=== PATIENT | male | born 1965 | race Caucasian/White ===

== ENCOUNTER 2016-11-15 15:44 | Inpatient (IN) ==
[2016-11-15 17:15] LABS: FREE T4 1.01 ng/dL (0.93-1.70)
--- NOTE | 2016-11-15 17:19 | EKG Report ---
Test Performed on : 11/15/2016 4:20:56 PM Test Reason : Psych Blood Pressure : / mmHG Vent. Rate : 086 BPM Atrial Rate : 086 BPM P-R Int : 204 ms QRS Dur : 106 ms QT Int : 384 ms P-R-T Axes : 042 044 054 degrees QTc Int : 459 ms Sinus rhythm. with occasional premature ventricular complexes. Otherwise normal ECG No previous ECGs available Unconfirmed Result
[2016-11-15 17:21] LABS: BASO% 0.2 % (0.0-0.8); EOS# 0.01 X1000 (0.0-0.7); EOS% 0.2 % (0.0-10.0); HEMOGLOBIN 11.7 g/dL (14.0-18.0); IMM GRAN# 0.01 X1000 (0.0-0.04); IMM GRAN% 0.2 % (0.0-0.5); LYMPH# 0.47 X1000 (1.2-3.4); LYMPH% 10.3 % (20.5-51.1); MANUAL DIFF NEEDED? NO; MCH 34.7 PG (27-31); MCHC 36.6 g/dL (33-37); MONO# 0.58 X1000 (0.11-0.59); MONO% 12.7 % (1.7-9.3); NEUT% 76.4 % (42.2-75.2); PLT 143 X1000 (130-400); RBC 3.37 XMIL (4.7-6.1)
[2016-11-15 17:24] LABS: AGAP 13; ALBUMIN 4.6 g/dL (3.5-5.0); ALKALINE PHOSPHATASE 75 U/L (32-122); BUN 19 mg/dL (8-22); CALCIUM 9.4 mg/dL (8.8-10.2); CHLORIDE 81 mmol/L (98-107); COSMO 244; GOT 48 U/L (10-34); GPT 38 U/L (10-44); POTASSIUM 3.8 mmol/L (3.5-5.1); TCO2 25 mmol/L (25-35); TOTAL PROTEIN 7.1 g/dL (6.3-8.3)
[2016-11-15 17:25] LABS: SODIUM 119 mmol/L (136-145)
[2016-11-15] MEDS ORDERED: NS 1,000 ML IV ONE (17:27)
--- NOTE | 2016-11-15 17:38 | PROVIDER DOCUMENTATION ---
This chart was entered by Chau Braun Scribe, acting as scribe for Etta Don CRNP. HPI-Psychological Disorder - General Chief Complaint: Req. Detox Stated Complaint: PSYCH EVAL Time Seen by Provider: 11/15/16 15:45 Source: patient, family Allergies/Adverse Reactions: Patient Allergies Allergy/AdvReac Type Severity Reaction Status Date / Time No Known Allergies Allergy Verified 11/15/16 15:55 Home Medications: Home Medication List Medication Instructions Recorded Confirmed Last Taken Type Isotretinoin [Claravis] 40 mg PO DAILY 11/15/16 11/15/16 Unknown History Nebivolol HCl [Bystolic] 10 mg PO DAILY 11/15/16 11/15/16 Unknown History - History of Present Illness-Psych Nature of Presenting Problem: patient is a 51 y/o M that presents to the [facility] via 's office for detox. patient has been drinking for 25 years and stopped 3 days ago. he has had ams and unsteady gait since. Daughter reports pt having depression and Si thoughts. Patient denies chest pain, fever/chills, or n/v/d Onset/Duration: reports: gradual, 3 days ago Timing: reports: still present, getting worse Severity: reports: moderate Situational problems related to:: reports: other (stopped drinking) Psychiatric Complaints: reports: depressed, suicidal ideation Substance Use: reports: alcohol Previous psych related hospitalizations?: No Patient arrived by:: private car Similar Symptoms Previously?: No Recently seen or treated by another doctor?: Yes Review of Systems - Adult - REVIEW OF SYSTEMS - ADULT Constitutional: denies: chills, fever Eyes: denies: decreased vision, blurred vision, double vision Ears, Nose, Mouth & Throat: denies: ear discharge, ear pain, epistaxis, mouth/ dental pain, mouth swelling Cardiovascular: denies: chest pain, palpitations, syncope Respiratory: denies: pleurisy, shortness of breath, wheezing Gastrointestinal: denies: abdominal pain, diarrhea, nausea, vomiting Genitourinary: denies: dysuria, frequency, hematuria, urinary retention Musculoskeletal: denies: back pain, joint pain, neck pain Integumentary: reports: no symptoms reported Neurological: reports: loss of balance, other (ams). denies: dizziness/vertigo , headache/migraines, seizure, syncope, tremors Psychiatric: reports: alcohol/drug dependence, depression, suicidal thoughts Endocrine: reports: no symptoms reported Hematologic/Lymphatic: reports: no symptoms reported Allergic/Immunologic: reports: no symptoms reported All Other Systems: Reviewed and Negative Past History - Adult - PAST MEDICAL HISTORY-ADULT Review of Records: reports: Old Records Reviewed, Nursing Assessment Review, Medications Reviewed Cardiovascular: reports: hyperlipidemia Neurological: reports: other (encephalopathy) Psychiatric: reports: anxiety, depression - PRIOR SURGERIES/PROCEDURES Surgical/Procedure History: reports: hernia repair - IMMUNIZATION STATUS Childhood Immunizations: See Nurse Assessment Flu Vaccine: See Nurse Assessment - FAMILY HISTORY Family History: reviewed, not pertinent - SOCIAL HISTORY Smoking: quit greater than 1 year, cigarettes Alcohol Use Frequency: every day Living Situation: family Physical Exam-Psych Focus - Physical Exam-Psych Initial Vital Signs Reviewed: Yes Appearance: appropriate appearance, appropriate insight, no memory impairment, alert Neurological: alert, calm, oriented x 3, other (unsteady gait) Behavior/Eye Contact/Speech: cooperative, good eye contact Thoughts/Hallucinations: normal thought pattern, no apparent hallucination HENMT: normocephalic/atraumatic, moist mucous membranes, normal ENT inspection Neck: full range of motion, normal inspection Respiratory: lungs clear, normal breath sounds, no respiratory distress, no accessory muscle use Cardiovascular: regular rate, rhythm, no edema Abdominal Exam: normal bowel sounds, non tender, soft Back Exam: no CVA tenderness, no vertebral tenderness Extremity: no calf tenderness, normal capillary refill, pelvis stable Integumentary: normal color, warm/dry Progress - PLAN OF CARE/RESULTS Progress/Plan/Lab Results: Vital Signs - 8 hr 11/15/16 15:49 Temperature 97.6 F Pulse Rate 88 Respiratory Rate 20 Blood Pressure 129/081 O2 Sat by Pulse Oximetry 99 Laboratory Results - last 24 hr 11/15/16 11/15/16 11/15/16 16:23 16:23 16:23 WBC RBC Hgb Hct MCV MCH MCHC RDW Std Deviation Plt Count MPV Immature Gran % (Auto) Neut % (Auto) Lymph % (Auto) Bracken % (Auto) Eos % (Auto) Baso % (Auto) Immature Gran # (Auto) Neut # (Auto) Lymph # (Auto) Bracken # (Auto) Eos # (Auto) Baso # (Auto) Sodium 119 L* Potassium 3.8 Chloride 81 L Carbon Dioxide 25 Anion Gap 13 BUN 19 Creatinine 0.6 L Estimated GFR/1.73 m2 > 60 BUN/Creatinine Ratio 32 Glucose 129 H Calculated Osmolality 244 Calcium 9.4 Total Bilirubin 1.20 H AST 48 H ALT 38 Alkaline Phosphatase 75 Ammonia Total Protein 7.1 Albumin 4.6 Globulin 3.0 Albumin/Globulin Ratio 2.0 TSH 1.48 Free T4 1.01 Plasma/Serum Ethyl Alc 11/15/16 11/15/16 16:23 16:23 WBC 4.58 L RBC 3.37 L Hgb 11.7 L Hct 32.0 L MCV 95.0 MCH 34.7 H MCHC 36.6 RDW Std Deviation 11.0 L Plt Count 143 MPV 11.0 H Immature Gran % (Auto) 0.2 Neut % (Auto) 76.4 H Lymph % (Auto) 10.3 L Bracken % (Auto) 12.7 H Eos % (Auto) 0.2 Baso % (Auto) 0.2 Immature Gran # (Auto) 0.01 Neut # (Auto) 3.50 Lymph # (Auto) 0.47 L Bracken # (Auto) 0.58 Eos # (Auto) 0.01 Baso # (Auto) 0.01 Sodium Potassium Chloride Carbon Dioxide Anion Gap BUN Creatinine Estimated GFR/1.73 m2 BUN/Creatinine Ratio Glucose Calculated Osmolality Calcium Total Bilirubin AST ALT Alkaline Phosphatase Ammonia 12 L Total Protein Albumin Globulin Albumin/Globulin Ratio TSH Free T4 Plasma/Serum Ethyl Alc Orders Category Date Time Status ALCOHOL BLOOD Stat Lab 11/15/16 16:23 Completed AMMONIA [CHEM] Stat Lab 11/15/16 16:23 Completed CBC WITH ELECTRONIC DIFF [HEME] Stat Lab 11/15/16 16:23 Completed COMPREHENSIVE METABOLIC PANEL [CHEM] Stat Lab 11/15/16 16:23 Completed FREE T4 Stat Lab 11/15/16 16:23 Results TSH Stat Lab 11/15/16 16:[address] W/POSS RFLX CULT [URINALYSIS] Stat Lab 11/15/16 15:46 Uncollected URINE DRUG SCREEN PL Stat Lab 11/15/16 15:46 Uncollected VITAMIN B12 Stat Lab 11/15/16 16:23 Results 0.9% Sodium Chloride Inj [Ns] 1,000 ml Med 11/15/16 17:27 Ordered IV 125 mls/hr EKG [EKG] Stat Ther 11/15/16 15:46 Draft Discussed results and plan of care with patient. Patient agrees with plan and verbalizes understanding. Result Diagrams: 11/15/16 16:23 11/15/16 16:23 - EKG 1 Time of EKG reading by physician:: 16:20 EKG Read and Signed by:: Oly Howard EKG Interpretation (*Must complete 3 of following elements*): Normal Rate: 86 Rhythm: Sinus rhythm with occasional pvcs QRS: PVC's SD Interval: normal ST Wave: normal - CONSULTS/PCP/HOSPITALIST Notification #1 *Consult/PCP/Hospitalist*: Dr. Estrella Time Discussed: 17:28 Reason/Comments: Admission Consult Disposition: Will see in ED (Dr. Estrella at bedside.), Admit Departure - Departure Date of Disposition Decision: 11/15/16 Time of Disposition Decision: 17:37 DIAGNOSIS: Hyponatremia Alcohol withdrawal Qualifiers: Complication of substance-induced condition: with unspecified complication Qualified Code(s): F10.239 - Alcohol dependence with withdrawal, unspecified Disposition: HOME 01 Certified Medical Emergency: Emergent Condition: Stable Referrals and Follow-Ups: Rodrigo Antoine MD [Primary Care Provider] - - Critical Care Note This patient required my direct & personal management of CC.: No Attestation - Physician/ KHUSHI Attestation Patient care was provided by Advanced Practice Provider:: Yes Advanced Practice Provider:: Etta Don (The physician was on site and available for consultation but did not see the patient face to face. ) Advanced Practice Provider documentation review:: The Mid-level provider documentation, treatment plan and medical decision making was reviewed by the physician who agrees with all treatment and medical decision making by the MLP. This chart was documented by the indicated scribe, (Chau Braun, Scribe) and accurately reflects the services I performed and decisions made by me, Etta Don CRNP, as attested by the provider's signature.
[2016-11-15] MEDS ORDERED: MAALOX PLUS LIQUID PO PRN (18:04)
[2016-11-15] MEDS ORDERED: TUBERSOL ID ONE (18:04)
[2016-11-15] MEDS ORDERED: ZOFRAN ODT PO PRN (18:04)
[2016-11-15] MEDS ORDERED: PHENERGAN PR PRN (18:04)
[2016-11-15] MEDS ORDERED: TYLENOL PO PRN (18:04)
[2016-11-15] MEDS ORDERED: SENOKOT PO PRN (18:04)
[2016-11-15] MEDS ORDERED: DULCOLAX PR PRN (18:04)
[2016-11-15] MEDS ORDERED: ROBAXIN PO PRN (18:04)
[2016-11-15] MEDS ORDERED: IMODIUM PO PRN (18:04)
[2016-11-15] MEDS ORDERED: LIBRIUM PO ONE (18:09)
[2016-11-15 19:07] LABS: URINE SOURCE VOIDED
[2016-11-15 19:25] LABS: BILIRUBIN URINE NEGATIVE (NEGATIVE); BLOOD URINE NEGATIVE (NEGATIVE); CLARITY CLEAR (CLEAR); COLOR YELLOW; GLUCOSE URINE NEGATIVE (NEGATIVE); LEUKOCYTES URINE TRACE (NEGATIVE); NITRITE URINE NEGATIVE (NEGATIVE); PROTEIN URINE TRACE mg/dL (NEGATIVE); URINE MICROSCOPIC NEEDED? YES; UROBILINOGEN URINE NORMAL
[2016-11-15 19:27] LABS: URINE CAST NONE SEEN /LPF; URINE CRYSTAL NONE SEEN /HPF; URINE EPITHELIAL CELLS <10 /HPF (<10); URINE RBC <10 /HPF (<10); URINE WBC <10 /HPF (<10)
[2016-11-15] MEDS ORDERED: M.V.I.-12 10 ML, FOLIC ACID 1 MG, MAGNESIUM SULFATE 1 GM, THIAMINE 100 MG in NS 1,000 ML IV ONE (19:30)
[2016-11-15] MEDS: LIBRIUM PO SCH (20:25)
[2016-11-15] MEDS: NS 1,000 ML IV SCH (20:25)
[2016-11-16] MEDS: LIBRIUM PO SCH ×4 (00:05→20:19)
[2016-11-16] MEDS: NS 1,000 ML IV SCH ×2 (03:59→14:38)
[2016-11-16 04:57] LABS: UR AMPHETAMINES QUAL NONE DETECTED (NONE DETECT); UR BARBITUATES QUAL NONE DETECTED (NONE DETECT); UR BENZODIAZEPIN QUAL NONE DETECTED (NONE DETECT); UR CANNABINOIDS QUAL NONE DETECTED (NONE DETECT); UR COCAINE QUAL NONE DETECTED (NONE DETECT); UR MDMA QUAL NONE DETECTED (NONE DETECT); UR METHADONE QUAL NONE DETECTED (NONE DETECT); UR METHAMPHETAMINE QUAL NONE DETECTED (NONE DETECT); UR OPIATES QUAL NONE DETECTED (NONE DETECT); UR OXYCODONE QUAL NONE DETECTED (NONE DETECT); UR PCP QUAL NONE DETECTED (NONE DETECT); UR TCA QUAL NONE DETECTED (NONE DETECT)
[2016-11-16 05:08] LABS: URINE CULTURE PL NEEDED? NO
[2016-11-16 05:13] LABS: URINE WBC <10 /HPF (<10)
[2016-11-16 05:14] LABS: CLARITY CLEAR (CLEAR); COLOR YELLOW; GLUCOSE URINE NEGATIVE (NEGATIVE); URINE EPITHELIAL CELLS <10 /HPF (<10); URINE RBC <10 /HPF (<10); URINE SOURCE CLEAN CATCH
[2016-11-16 05:15] LABS: BILIRUBIN URINE NEGATIVE (NEGATIVE); BLOOD URINE NEGATIVE (NEGATIVE); LEUKOCYTES URINE NEGATIVE (NEGATIVE); NITRITE URINE NEGATIVE (NEGATIVE); PROTEIN URINE TRACE mg/dL (NEGATIVE); UROBILINOGEN URINE NORMAL
[2016-11-16 06:25] LABS: INR 1.03 (0.86-1.15); PROTIME 13.8 Seconds (12.1-15.5); PTT PL 28.5 Seconds (22.6-43.9)
[2016-11-16 06:32] LABS: AGAP 11; BUN 12 mg/dL (8-22); CHLORIDE 90 mmol/L (98-107); POTASSIUM 2.7 mmol/L (3.5-5.1); SODIUM 125 mmol/L (136-145); TCO2 24 mmol/L (25-35)
[2016-11-16 06:33] LABS: ALBUMIN 3.8 g/dL (3.5-5.0); ALKALINE PHOSPHATASE 67 U/L (32-122); CALCIUM 8.1 mg/dL (8.8-10.2); COSMO 251; GOT 71 U/L (10-34); GPT 42 U/L (10-44); LIPASE 80 U/L (13-60); TOTAL PROTEIN 5.9 g/dL (6.3-8.3)
[2016-11-16 06:37] LABS: FREE T4 1.02 ng/dL (0.93-1.70)
[2016-11-16] MEDS ORDERED: MULTI-VITAMIN PO SCH (09:00)
[2016-11-16] MEDS: FOLIC ACID PO SCH (09:28)
[2016-11-16] MEDS: VITAMIN B-1 PO SCH (09:28)
[2016-11-16] MEDS ORDERED: KLOR-CON PO ONE (12:30)
--- NOTE | 2016-11-16 13:05 | PROGRESS NOTE ---
DATE: 11/16/2016 SUBJECTIVE: The patient notes he is feeling a little bit better. He is having less nervousness and jittery. He is still shaky. His daughter states that he is much improved from yesterday. Notes that he is still oriented. PHYSICAL: Temp 98 degrees, pulse 84, respiratory 20, BP 124/78, sat 100% on room air.General: Patient awake alert, oriented. He is currently in no true respiratory distress. His speech is sluggish but correct. He is slow to respond but has oriented answers. HEENT: Normocephalic and atraumatic. Neck: Supple. CV: Regular rate. Chest: Clear. Abdomen: Soft. Extremities: He is having mild tremulousness but moves all extremities well. Neuro: He is awake, alert, oriented x3. LABS: Sodium 125, potassium 2.7, albumin 0.9, lipase 80. PLAN: Will replace his potassium p.o. At this point we will move him out to the floor. Recheck labs in the a.m. Further orders as needed. cc: Hira Estrella MD
--- NOTE | 2016-11-16 18:54 | HISTORY AND PHYSICAL ---
This is a delayed dictation for 11/15/2016. CHIEF COMPLAINT: "I want to stop drinking." HISTORY OF PRESENT ILLNESS: This is a 51-year-old male who presented to the emergency room stating that he has drunk alcohol for 25 years. He stopped 3 days ago and he notes he is going through withdrawal and DTs, and he wants help. Family states that the patient has been depressed and had voiced suicidal thoughts although the patient denies this. He states he is nervous and jittery. He is noted to have heart rates in the 70s and 80s. In the emergency room, he was given IV hydration, along with a potassium supplement, and he is being admitted for further evaluation and treatment. PAST MEDICAL HISTORY: Alcohol use and abuse, anxiety and depression. PAST SURGICAL HISTORY: Hernia repair. SOCIAL HISTORY: He drinks two 12 packs a day. He denies alcohol or illicit drug use. ALLERGIES: No known drug allergies. HOME MEDICATIONS: Viagra 100 mg p.r.n., Xifaxan b.i.d., Bystolic 10 daily. REVIEW OF SYSTEMS: A 14 point review of systems is discussed with the patient with pertinent positives stated in the HPI. He denied chest pain, palpitations, shortness of breath, PND, orthopnea, fever, chills, cough, nausea, vomiting, diarrhea, constipation, black or bloody vomitus, black or bloody stools, hematuria, dysuria, frequency, urgency. PHYSICAL EXAMINATION: GENERAL: This is a 51-year-old male who is sitting in the bed. He is anxious and jittery at present. He is in mild distress. VITAL SIGNS: Blood pressure is 131/70 with a heart rate of 80, respirations are 16, temperature is 99.2, with room air saturations of 96-100%. CARDIOVASCULAR: Regular rate and rhythm S1, S2 appreciated. PULMONARY: Breath sounds are clear with no increased work of breathing noted. GASTROINTESTINAL: Abdomen is soft, nontender, nondistended with bowel sounds in all 4 quadrants. BACK: No CVAT. No spine tenderness. MUSCULOSKELETAL: Good range of motion of joints. EXTREMITIES: No clubbing, cyanosis, or edema. Calves are nontender. Pulses are palpable x4. NEUROLOGIC: He is alert, he is oriented. He is cooperative. DIAGNOSTICS: WBC is 4.5, with a hemoglobin of 11.7, hematocrit 32 and platelets of 143. Sodium of 119, potassium 3.8, BUN 19, creatinine 0.6, with a glucose of 129. Total bilirubin is 1.20 with AST of 48. Urinalysis is essentially negative. Urine drug screen and blood alcohol are negative. ASSESSMENT AND PLAN: This is a 51-year-old male who is sitting in the bed, anxious, but in no distress. 1. Alcohol withdrawal/delirium tremens. We will give a banana bag and then follow with thiamine and folic acid p.o. daily. We will give a Librium taper. We will monitor for DTs. We will continue with IV hydration. We will identify his home medications and continue as appropriate. 2. Hyponatremia. As stated above, we will hydrate. We will trend labs. 3. Alcohol abuse. The patient is asking for help. Once he is medically stable, we will contact facilities and try to find placement to assist him with detox. 4. Depression and suicidal ideation. The patient denies any suicidal thoughts or plans. Further treatments pending hospital course. Dictated by JORGITO Osborne for Hira Estrella MD cc: JORGITO Osborne MD
[2016-11-17] MEDS: LIBRIUM PO SCH ×4 (00:19→16:53)
[2016-11-17] MEDS: NS 1,000 ML IV SCH (00:27)
[2016-11-17 06:30] LABS: HEMATOCRIT 26.7 % (42.0-52.0); HEMOGLOBIN 9.3 g/dL (14.0-18.0); MCH 34.3 PG (27-31); MCHC 34.8 g/dL (33-37); MCV 98.5 FL (81-99); MPV 10.9 FL (7.4-10.4); RBC 2.71 XMIL (4.7-6.1)
[2016-11-17 07:15] LABS: AGAP 13; ALBUMIN 3.4 g/dL (3.5-5.0); ALKALINE PHOSPHATASE 89 U/L (32-122); BUN 10 mg/dL (8-22); CALCIUM 8.3 mg/dL (8.8-10.2); CHLORIDE 99 mmol/L (98-107); COSMO 265; GOT 88 U/L (10-34); GPT 64 U/L (10-44); MAGNESIUM 1.9 mg/dL (1.5-2.7); POTASSIUM 2.8 mmol/L (3.5-5.1); SODIUM 133 mmol/L (136-145); TCO2 22 mmol/L (25-35); TOTAL PROTEIN 5.5 g/dL (6.3-8.3)
[2016-11-17] MEDS: VITAMIN B-1 PO SCH (08:47)
[2016-11-17] MEDS: FOLIC ACID PO SCH (08:47)
[2016-11-17] MEDS: KLOR-CON PO SCH ×2 (08:47→21:24)
[2016-11-17] MEDS: THERA M PLUS PO SCH (08:48)
[2016-11-17] MEDS: ATIVAN PO PRN ×2 (09:07→19:29)
--- NOTE | 2016-11-17 12:35 | PROGRESS NOTE ---
DATE: 11/17/2016 SUBJECTIVE: Patient notes that he is feeling a lot better this morning. He is still shaky, jittery, and nervous. Denies any chest pain or palpitations. Denies any GI or issues. OBJECTIVE: Vital Signs: Temperature 97 degrees, pulse 81 to 102, respiratory 16, blood pressure 141/72, saturation 99% on room air. General: Patient is awake, alert. He is sitting on the side of the bed. Speech is slow and sluggish, but intact. His memory is intact. HEENT: Normocephalic. Neck: Supple. Cardiovascular: Regular rate. Chest: Relatively clear. Abdomen: Soft. Extremities: Moves all extremities. Neurologic: No changes. DIAGNOSTIC DATA: WBC 2, hemoglobin and hematocrit 9 and 23. Sodium 133, potassium 2.8, calcium 8.3, AST and ALT 88 and 64. ASSESSMENT: 1. Acute hepatitis. His liver functions have gone up some, although patient has a known history of mild liver disease. He has been told in the past that he has fatty liver and, in fact, he actually is taking Xifaxan at home to assist with this. We will get an ultrasound on his abdomen to evaluate. Most likely, it is secondary to his chronic alcoholism. 2. Acute alcohol withdrawal. Patient has improved. Will continue to wean his Librium. 3. Hyponatremia continues to improve. Sodium was 119 and is currently up to 133. 4. Hypokalemia with potassium 2.8. We will continue to replace. 5. Mild hypocalcemia. 6. Pancytopenia secondary to alcohol effect. PLAN: We will ask [employer] to begin looking for discharge planning via [facility] or further inpatient treatments. Hopefully, he will be able to discharge in the next 2 days. cc: Hira Estrella MD
[2016-11-18 06:26] LABS: HEMATOCRIT 28.6 % (42.0-52.0); HEMOGLOBIN 9.5 g/dL (14.0-18.0); MCH 33.8 PG (27-31); MCHC 33.2 g/dL (33-37); MCV 101.8 FL (81-99); MPV 10.5 FL (7.4-10.4); RBC 2.81 XMIL (4.7-6.1)
[2016-11-18 06:47] LABS: AGAP 11; ALBUMIN 3.6 g/dL (3.5-5.0); ALKALINE PHOSPHATASE 88 U/L (32-122); BUN 9 mg/dL (8-22); CALCIUM 8.7 mg/dL (8.8-10.2); CHLORIDE 99 mmol/L (98-107); COSMO 269; GOT 76 U/L (10-34); GPT 75 U/L (10-44); MAGNESIUM 1.8 mg/dL (1.5-2.7); POTASSIUM 3.2 mmol/L (3.5-5.1); SODIUM 135 mmol/L (136-145); TCO2 24 mmol/L (25-35); TOTAL PROTEIN 5.7 g/dL (6.3-8.3)
[2016-11-18] MEDS: THERA M PLUS PO SCH (08:29)
[2016-11-18] MEDS: LIBRIUM PO SCH ×2 (08:29→20:58)
[2016-11-18] MEDS: KLOR-CON PO SCH ×2 (08:30→20:57)
[2016-11-18] MEDS: FOLIC ACID PO SCH (08:30)
[2016-11-18] MEDS: VITAMIN B-1 PO SCH (08:30)
--- NOTE | 2016-11-18 09:22 | PROGRESS NOTE ---
DATE: 11/18/2016 SUBJECTIVE: The patient is feeling better this morning. He is still shaky, jittery, and nervous, although he states that it is decreasing. He denies chest pain or palpitations, any GI or issues. OBJECTIVE: Vital Signs: Blood pressure is 142/84, with a heart rate of 78, respirations are 20, temperature is 98.7 degrees, with a room air saturations of 99-100%. Gastrointestinal: Abdomen is soft, nontender, and nondistended, with bowel sounds in all 4 quadrants. Cardiovascular: Regular rate and rhythm. S1 and S2 are appreciated. Pulmonary: Breath sounds are clear with no increased work of breathing noted. Extremities: No clubbing, cyanosis, or edema. Calves are nontender. Pulses are palpable x4. Neurologic: He is alert and oriented. Laboratory Data: WBC is 3.4, with a hemoglobin of 9.5, hematocrit 28.6, and platelets of 135,000. Sodium is 135, potassium 3.2, BUN is 9, creatinine 0.9, with a glucose of 110. ASSESSMENT: 1. Acute hepatitis. His liver function have decreased somewhat. He does have a history of mild liver disease. Ultrasound of the abdomen is pending. 2. Acute alcohol withdrawal. He has improved but we will continue his Librium as he still has some shaking, jittery, and nervousness. 3. Hyponatremia. This has improved with a sodium of 135. We will continue to trend labs. 4. Hypokalemia. We will continue to replace. 5. Mild hypocalcemia. 6. Pancytopenia secondary to alcohol effect. PLAN: We will ask [employer] to begin looking for discharge planning. Hopefully home in the next 1-2 days. Dictated by JORGITO Osborne for Hira Estrella MD cc: JORGITO Osborne MD
--- NOTE | 2016-11-18 11:12 | Diag Imaging Result Doc PS360 ---
EXAM: US ABDOMEN-COMPLETE HISTORY: elev lft TECHNIQUE: Abdominal ultrasound, transabdominal COMMENT: The pancreas is slightly inhomogeneous in echotexture but there are no focal abnormalities. The aorta and inferior vena cava are normal in appearance where there are visible. The liver is hyperechoic. There is no evidence of biliary dilatation, the common bile duct measures 4 mm. There is antegrade flow in the portal vein. The gallbladder is clear and nontender. The spleen is not enlarged. The kidneys are without evidence of hydronephrosis or mass. There are no abnormal fluid collections. IMPRESSION: Hepatic steatosis. Electronically signed by Prashanth Brand 11/18/2016 11:10 AM
[2016-11-19 06:42] LABS: AGAP 12; ALBUMIN 3.7 g/dL (3.5-5.0); ALKALINE PHOSPHATASE 95 U/L (32-122); BUN 9 mg/dL (8-22); CALCIUM 8.8 mg/dL (8.8-10.2); CHLORIDE 100 mmol/L (98-107); COSMO 273; GOT 78 U/L (10-34); GPT 91 U/L (10-44); POTASSIUM 3.4 mmol/L (3.5-5.1); SODIUM 137 mmol/L (136-145); TCO2 25 mmol/L (25-35); TOTAL PROTEIN 6.1 g/dL (6.3-8.3)
[2016-11-19 07:03] LABS: HEMATOCRIT 30.9 % (42.0-52.0); MCH 33.2 PG (27-31); MCHC 32.4 g/dL (33-37); MCV 102.7 FL (81-99); MPV 10.5 FL (7.4-10.4); RBC 3.01 XMIL (4.7-6.1)
[2016-11-19] MEDS: VITAMIN B-1 PO SCH (09:59)
[2016-11-19] MEDS: KLOR-CON PO SCH (09:59)
[2016-11-19] MEDS: FOLIC ACID PO SCH (09:59)
[2016-11-19] MEDS: LIBRIUM PO SCH (09:59)
[2016-11-19] MEDS: THERA M PLUS PO SCH (09:59)
[2016-11-19 17:13] VITALS: BP 141/79
--- NOTE | 2016-11-19 18:53 | DISCHARGE SUMMARY ---
ADMISSION DATE: 11/15/2016 DISCHARGE DATE: 11/19/2016 ADMISSION DIAGNOSES: 1. Alcohol withdrawal/delirium tremens. 2. Hyponatremia. 3. Alcohol abuse. 4. Depression and suicidal ideations with no suicidal thoughts or plans at this time. DISCHARGE DIAGNOSES: 1. Alcohol withdrawal/delirium tremens improved. 2. Hyponatremia resolved. 3. Alcohol abuse. 4. Depression. Denies suicidal ideations. SUMMARY OF FINDINGS: This is a 51-year-old male who presented to the emergency room stating that he had drank alcohol for 25 years and stopped approximately 3 days prior to arrival. He was seen by his primary care physician who sent him to the emergency room as he was going through withdrawals and DTs, and wanted help. Family stated that the patient had been depressed and had voiced suicidal thoughts although the patient denies this. He states he was feeling nervous and jittery. His heart rate was in the 70s and 80s. He was given IV hydration, potassium supplementation and admitted. He was given a banana bag of fluids daily. We did an abdomen ultrasound that showed hepatic steatosis. He had a sodium on arrival of 119, now back up to 137. Again his potassium was supplemented. It is now felt his electrolytes are back within normal limits, he is tolerating a regular diet and it is felt that he can safely be discharged home. He will be given a prescription for Librium 25 mg 1 p.o. b.i.d. for 1 day, then decrease to 1 p.o. at bedtime for 2 days, and then stop #4 with no refills. He will continue his home medications of Claravis 40 mg p.o. daily, Bystolic 10 mg p.o. daily, Xifaxan 550 mg p.o. b.i.d., and Viagra 100 mg p.o. p.r.n. FOLLOWUP: He will followup with his primary care physician in 1-2 weeks. We have discussed ETOH cessation at length with this patient who verbalizes understanding. TOTAL TIME SPENT ON DISCHARGE: 35 minutes. Dictated by JORGITO Del Toro for Hira Estrella MD cc: JORGITO Del Toro MD Kirk L. Jackson, MD
== END 2016-11-19 20:05 ==
LOC: P.ED 15:44 → P.ICU 19:06 → P.MEDSURG 11-16 22:09
PROVIDERS: ATTEND Family Medicine